=== PATIENT | male | born 1950 | race Caucasian/White ===

== ENCOUNTER 2020-06-20 15:16 | Observation (INO) | payer MEDICARE, MEDICAID ==
[~2020-06-20] VITALS: Ht 167.6 cm; Wt 88.5 kg
[~2020-06-20 15:16] MED LIST: ALBU8.5H8 INH; ASPI-515 PO; ATOR-2 PO; BUSP10TA PO; CARV3.1212 PO; DULO60CA56 PO; FLUT1BLS8 INH; FURO40TA6 PO; GABA600T7 PO; LOSA50TA14 PO; ONDA4TAB7 PO; PRAS10TA4 PO; SPIR25TA PO; ZOLP-413 PO
[2020-06-20] MEDS ORDERED: ASPIRIN 81 MG TABLET CHEW PO ONE ×2 (15:30→16:00)
[2020-06-20] MEDS ORDERED: SODIUM CHLORIDE FLUSH 10ML SYR IVF ONE ×2 (15:30→16:00)
--- NOTE | 2020-06-20 15:30 | NUR ---
THIS IS A 70 YO M BROUGHT IN FROM [facility] REH[facility] W/ C/O CP. 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 PT NOW REPORTS NO PAIN. PT HAS HX OF OR, HF W/ EF 18%. CODE CARDIAC WAS CALLED. 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 2 PIV STARTED, LABS DRAWN. PT MEDICATED W/ 162 ASPIRIN. FRANTZ BLANCHARD.
[2020-06-20] MEDS ORDERED: VERAPAMIL 2.5 MG/ML, 2ML ONE (15:38)
[2020-06-20] MEDS ORDERED: MIDAZOLAM 1 MG/ML, 5ML ONE (15:38)
[2020-06-20] MEDS ORDERED: FENTANYL PF 100 MCG/2ML ONE (15:38)
[2020-06-20] MEDS ORDERED: HEPARIN 1,000 UNITS/ML, 10ML ONE (15:39)
[2020-06-20] MEDS ORDERED: LIDOCAINE 2%, 20ML ONE (15:39)
[2020-06-20] MEDS ORDERED: BIVALIRUDIN 250 MG ONE (15:39)
[2020-06-20 15:55] LABS: BASOPHILS % (AUTO) 1 % (0-1); EOSINOPHILS % (AUTO) 2 % (1-7); LYMPHOCYTES % (AUTO) 34 % (22-44); MEAN CORPUSCULAR HEMOGLOBIN 32.7 pg (27.5-34.5); MEAN CORPUSCULAR HGB CONC 34.1 g/dL (33.2-36.2); MEAN PLATELET VOLUME 7.4 fL (7.4-10.4); MONOCYTES % (AUTO) 11 % (2-9); NEUTROPHILS % (AUTO) 53 % (42-75); PLATELET COUNT 337 x10^3/uL (130-400); RED BLOOD COUNT 4.76 x10^6/uL (4.38-5.82); RED CELL DISTRIBUTION WIDTH 14.2 % (9.4-14.8)
[2020-06-20 15:59] LABS: MD NO
[2020-06-20] MEDS ORDERED: NITROGLYCERIN 0.4 MG/SPRAY SL PRN (16:00)
[2020-06-20] MEDS ORDERED: morphine SULFATE 10 MG/ML, 1ML IV PRN (16:00)
[2020-06-20 16:04] LABS: ALANINE AMINOTRANSFERASE 19 U/L (12-78); ALBUMIN 3.9 g/dL (3.4-5.0); ANION GAP 6 mmol/L (5-15); CHLORIDE 109 mmol/L (98-107); CREATININE 0.95 mg/dL (0.7-1.3)
[2020-06-20 16:08] LABS: ALKALINE PHOSPHATASE 89 U/L (45-117); BILIRUBIN,TOTAL 0.6 mg/dL (0.2-1.0); TOTAL PROTEIN 7.9 g/dL (6.4-8.2); TROPONIN I < 0.015 ng/mL (0.000-0.045)
[2020-06-20 16:16] LABS: CHOL/HDL RATIO 5.2; LDL/HDL RATIO 1.6 (0.5-3.0)
--- NOTE | 2020-06-20 16:34 | NUR ---
PT RESTING ON GURNEY W/ CALL LIGHT IN REACH, RESP EVEN AND UNLABORED, NADN. AWAITING ADMIT.
[2020-06-20] MEDS ORDERED: SODIUM CHLORIDE FLUSH 10ML SYR IVF PRN (17:00)
--- NOTE | 2020-06-20 17:48 | NUR ---
HOSPITALIST IN ROOM. OK TO GIVE CARDIAC DIET TRAY. PT PROVIDED W/ MEAL.
[2020-06-20] MEDS ORDERED: ALPRazolam 1MG TAB PO PRN (18:00)
[2020-06-20] MEDS ORDERED: HEPARIN 5,000 UNITS/ML, 1ML IV ONE (18:00)
[2020-06-20] MEDS ORDERED: ONDANSETRON 2MG/ML, 2ML IVPush PRN (18:00)
[2020-06-20] MEDS ORDERED: HEPARIN 25,000 UNITS/250ML PMX 250 ML IV PRN (18:00)
[2020-06-20] MEDS ORDERED: BUTALB/APAP/CAFFEINE 50MG/325MG/40MG PO PRN (18:00)
[2020-06-20] MEDS ORDERED: BACLOFEN 10 MG TABLET PO PRN (18:00)
[2020-06-20] MEDS ORDERED: ONDANSETRON ODT 4 MG PO PRN (18:00)
[2020-06-20] MEDS ORDERED: HEPARIN 5,000 UNITS/ML, 1ML IV PRN (18:00)
[2020-06-20] MEDS ORDERED: ALBUTEROL HFA 90 MCG/SPRAY INH PRN (18:30)
--- NOTE | 2020-06-20 18:45 | NUR ---
PT TRANSPORTED ONTO HOSPITAL BED W/O INCIDENT. DENIES FURTHER NEEDS AT THIS TIME. RESP EVEN AND UNLABORED, MARLIN.
--- NOTE | 2020-06-20 19:10 | NUR ---
report recieved from erika pierson
[2020-06-20 19:27] LABS: TROPONIN I < 0.015 ng/mL (0.000-0.045)
--- NOTE | 2020-06-20 20:19 | NUR ---
repeat trops negative, and according to md order do not start hepain drip if negative.
[2020-06-20] MEDS ORDERED: ATORVASTATIN 80 MG TABLET ONE (20:24)
[2020-06-20] MEDS ORDERED: ZOLPIDEM 5MG TABLET ONE (20:24)
[2020-06-20] MEDS ORDERED: MELATONIN 5 MG TABLET ONE (20:25)
[2020-06-20] MEDS ORDERED: ATORVASTATIN 80 MG TABLET PO SCH (21:00)
[2020-06-20] MEDS ORDERED: ZOLPIDEM 5MG TABLET PO SCH (21:00)
[2020-06-20] MEDS ORDERED: MELATONIN 5 MG TABLET PO SCH (21:00)
[2020-06-20] MEDS: SODIUM CHLORIDE FLUSH 10ML SYR IVF SCH (21:12)
[2020-06-20] MEDS: BUSPIRONE 10 MG TABLET PO SCH (21:12)
--- NOTE | 2020-06-20 21:14 | NUR ---
PT MEDICATED, ON ALL MONITORS, NO NEEDS AT THIS TIME
--- NOTE | 2020-06-20 22:09 | NUR ---
REPORT GIVEN TO AGUILA SNYDER
[2020-06-20 22:30] VITALS: BP 130/73
[2020-06-20 22:32] LABS: TROPONIN I 0.021 ng/mL (0.000-0.045)
[2020-06-20 22:37] VITALS: BP 130/73
[2020-06-21 01:00] LABS: TROPONIN I < 0.015 ng/mL (0.000-0.045)
[2020-06-21] MEDS ORDERED: ASPIRIN 81 MG TABLET EC PO SCH (06:00)
[2020-06-21] MEDS ORDERED: METOPROLOL TARTRATE 25 MG TAB PO SCH (08:00)
[2020-06-21 08:14] VITALS: BP 119/67
[2020-06-21] MEDS ORDERED: REGADENOSON 0.4 MG/5 ML SYRINGE ONE (08:25)
[2020-06-21] MEDS: BUSPIRONE 10 MG TABLET PO SCH (08:25)
[2020-06-21] MEDS: SODIUM CHLORIDE FLUSH 10ML SYR IVF SCH (08:29)
[2020-06-21] MEDS ORDERED: LOSARTAN 50MG TABLET PO SCH (09:00)
[2020-06-21] MEDS ORDERED: FUROSEMIDE 40 MG TABLET PO SCH (09:00)
[2020-06-21] MEDS ORDERED: PRASUGREL 10 MG TABLET PO SCH (09:00)
[2020-06-21] MEDS ORDERED: SPIRONOLACTONE 25 MG TABLET PO SCH (09:00)
[2020-06-21] MEDS ORDERED: SENNA/DOCUSATE TABLET PO SCH (09:00)
[2020-06-21 11:36] VITALS: BP 113/66
[2020-06-21] MEDS ORDERED: METO25TA35 PO (12:57)
[2020-06-21 14:34] VITALS: BP 106/67
== END 2020-06-21 15:00 | disposition home or self-care (01) ==
LOC: ED 16:07 → EDIP 16:54 → INTOOBSV 16:54 → 5SO 22:45 → DCLOUNGE 06-21 13:19 → 5SO 06-21 13:46 → DCLOUNGE 06-21 14:49
PROVIDERS: ADMIT Family Medicine; ATTEND Family Medicine
DX: R07.89 Other chest pain (principal); I25.110 Atherosclerotic heart disease of native coronary artery with unstable angina pectoris; I25.5 Ischemic cardiomyopathy; I24.9 Acute ischemic heart disease, unspecified; I11.0 Hypertensive heart disease with heart failure; I50.22 Chronic systolic (congestive) heart failure; J44.9 Chronic obstructive pulmonary disease, unspecified; E78.5 Hyperlipidemia, unspecified; I08.0 Rheumatic disorders of both mitral and aortic valves; E03.9 Hypothyroidism, unspecified; I49.3 Ventricular premature depolarization; I21.09 ST elevation (STEMI) myocardial infarction involving other coronary artery of anterior wall; G89.29 Other chronic pain; F12.10 Cannabis abuse, uncomplicated; F41.8 Other specified anxiety disorders; Z79.02 Long term (current) use of antithrombotics/antiplatelets; Z87.891 Personal history of nicotine dependence; Z79.899 Other long term (current) drug therapy
CPT/HCPCS: 36415; 71045; 78452; 80047; 80053; 80061; 84484; 85025; 93005; 93017; 93798; 99285; A9502; G0378; J2785; J0583; J1644; J2250; J3010

== ENCOUNTER → 2020-09-12 | Outpatient (CLI) | payer MEDICARE, MEDICAID ==
[~2020-09-12] MED LIST changes: -ASPI-515 PO; +ASPI-963 PO; +METO25TA35 PO
== END | disposition home or self-care (01) ==
LOC: CFH 10:51
PROVIDERS: ATTEND Internal Medicine Cardiovascular Disease
DX: I08.3 Combined rheumatic disorders of mitral, aortic and tricuspid valves (principal)
CPT/HCPCS: 93306

== ENCOUNTER 2021-03-13 09:56 | Outpatient (CLI) | payer MEDICARE, MEDICAID | END 2021-03-13 23:59 | disposition home or self-care (01) | LOC: CFH 09:56 | PROVIDERS: ATTEND Internal Medicine Cardiovascular Disease | DX: I08.3 Combined rheumatic disorders of mitral, aortic and tricuspid valves (principal) | CPT/HCPCS: 93306; 93356 ==